=== PATIENT | female | born 1945 | race Caucasian/White ===

== ENCOUNTER → 2018-01-20 | Outpatient (CLI) | payer MEDICARE ==
[~2018-01-20] MED LIST: ACE500 PO; ASPI-1441 PO; BIOT1CAP; CALC600T63 PO; CHOL400T55 PO; CRAN200C5 PO; DEXL60CA6 PO; GLUC-135 PO; LOSA50TA72 PO; LOVA10TA63 PO; LOVA20TA99 PO; MAGN400C PO; MULT-1372 PO; NAPR-1043 PO; NIAC50TA13 PO; OMEG-23 PO; PER PO; PRO25 PO; RANI-366 PO; RANI150C14 PO
[2018-01-20 11:02] LABS: PLATELET COUNT, AUTOMATED 308 K/uL (150-450)
--- NOTE | 2018-01-20 13:26 | EKG ---
FACILITY: [facility] - [place] PATIENT NAME: GAYATRI RED : [id number] MR: [id number]: [id number] EXAM DATE: ORDERING PHYSICIAN: RAZA FONSECA TECHNOLOGIST: DAPHNIE Montemayor Reason : PRE-OP Blood Pressure : / mmHG Vent. Rate : 069 BPM Atrial Rate : 069 BPM P-R Int : 148 ms QRS Dur : 086 ms QT Int : 412 ms P-R-T Axes : 071 083 075 degrees QTc Int : 441 ms Normal sinus rhythm Normal ECG When compared with ECG of 04-JUL-2016 17:08, No significant change was found Confirmed by RAZA JAUREGUI ([id number]) on 01/21/2018 6:29:19 AM Referred By: MARIAN Confirmed By:RAZA JAUREGUI
== END ==
LOC: LAB 10:26
PROVIDERS: ATTEND Anesthesiology
DX: Z01.812 Encounter for preprocedural laboratory examination (principal); Z01.810 Encounter for preprocedural cardiovascular examination; S62.398A Other fracture of other metacarpal bone, initial encounter for closed fracture
CPT/HCPCS: 36415; 82040; 82247; 82310; 82374; 82435; 82565; 82947; 84075; 84132; 84155; 84295; 84450; 84460; 84520; 85025; 93005